=== PATIENT | female | born 1960 ===

== ENCOUNTER 2017-05-05 08:58 | Outpatient (CLI) | payer BC ==
--- NOTE | 2017-05-06 13:02 | Mammography Report ---
DIGITAL SCREENING MAMMOGRAM: 05/05/2017 CLINICAL INDICATION: A 57-year-old with history of late childbearing for screening. COMPARISON: 05/2014, 02/2013 TECHNIQUE: Routine CC and MLO projections were obtained of the breasts. FINDINGS: Scattered fibroglandular tissue is present within the breasts. There are no dominant dusty s, suspicious microcalcifications, or secondary signs of malignancy. In comparison to the previous st udies, there are no significant changes. ASSESSMENT: NO MAMMOGRAPHIC EVIDENCE OF MALIGNANCY. NO SIGNIFICANT INTERVAL CHANGES. RECOMMENDATION: Screening mammography is recommended annually. BIRADS category 1 - negative. STANDARD QUALIFYING STATEMENTS 1. This examination was reviewed with the aid of Computed-Aided Detection (CAD). 2. A negative or benign imaging report should not delay biopsy if clinically suspicious findings are present. Consider surgical consultation if warranted. More than 5% of cancers are not identified by i maging. 3. Dense breasts may obscure an underlying neoplasm. JOB #: [id number] EXT JOB #:[id number]
== END 2017-05-05 08:59 | disposition home or self-care (01) ==
LOC: DI.S 08:58
PROVIDERS: ATTEND Naturopath
DX: Z12.31 Encounter for screening mammogram for malignant neoplasm of breast (principal)
CPT/HCPCS: 77067

== ENCOUNTER 2017-07-11 07:02 | Day surgery (SDC) | payer BC ==
[2017-07-11] MEDS ORDERED: LACTATED RINGERS 1,000 ML IV ONE ×2 (07:10→08:35)
[2017-07-11] MEDS ORDERED: fentaNYL 100 MCG/2 ML VIAL IVP ONE (08:30)
[2017-07-11] MEDS ORDERED: MIDAZOLAM 2 MG/2 ML VIAL IVP ONE (08:30)
[2017-07-11 09:29] VITALS: BP 100/67
== END 2017-07-11 07:03 | disposition home or self-care (01) ==
LOC: SDS 07:02
PROVIDERS: ATTEND Surgery
PROC: 0DBL8ZX Excision of Transverse Colon, Via Natural or Artificial Opening Endoscopic, Diagnostic (ICD-10-PCS; principal; 2017-07-11 08:15)
DX: Z12.11 Encounter for screening for malignant neoplasm of colon (principal); D12.3 Benign neoplasm of transverse colon; K64.8 Other hemorrhoids
CPT/HCPCS: 45380; J7120

== ENCOUNTER 2021-02-21 08:00 | Outpatient (CLI) | payer BC | END 2021-02-21 23:59 | disposition home or self-care (01) | LOC: LAB.S 08:00 | PROVIDERS: ATTEND Physician Assistant | DX: J06.9 Acute upper respiratory infection, unspecified (principal); J34.89 Other specified disorders of nose and nasal sinuses; Z20.822 Contact with and (suspected) exposure to COVID-19 ==

== ENCOUNTER 2021-04-13 10:17 | Outpatient (CLI) | payer BC ==
[2021-04-13 14:54] LABS: BASOPHILS % (AUTO) 0.7 %; EOSINOPHILS # (AUTO) 0.2 10^3/uL (0.0-0.7); EOSINOPHILS % (AUTO) 2.6 %; HGB - HEMOGLOBIN 14.5 g/dL (12.0-16.0); LYMPHOCYTES # (AUTO) 1.6 10^3/uL (1.5-3.5); LYMPHOCYTES % (AUTO) 27.1 %; MEAN CORPUSCULAR HEMOGLOBIN 30.4 pg (27.0-31.0); MEAN CORPUSCULAR VOLUME 92.2 fL (81.0-99.0); MEAN PLATELET VOLUME 9.6 fL (7.9-10.8); MONOCYTES # (AUTO) 0.4 10^3/uL (0.0-1.0); MONOCYTES % (AUTO) 6.8 %; NEUTROPHILS # (AUTO) 3.8 10^3/uL (1.5-6.6); NEUTROPHILS % (AUTO) 62.5 %; PLT - PLATELET COUNT 376 10^3/uL (130-450); RED BLOOD COUNT 4.77 10^6/uL (4.20-5.40); RED CELL DISTRIBUTION WIDTH 12.9 % (12.0-15.0); WHITE BLOOD COUNT 6.1 x10^3/uL (4.8-10.8)
[2021-04-13 15:14] LABS: ALBUMIN 4.1 g/dL (3.2-5.5); ALBUMIN/GLOBULIN RATIO 1.2 (1.0-2.2); ALKALINE PHOSPHATASE 71 IU/L (42-121); ALT ALANINE AMINOTRANSFERASE 26 IU/L (10-60); AST ASPARTATE AMINOTRANSFERASE 21 IU/L (10-42); BILIRUBIN,TOTAL 0.8 mg/dL (0.2-1.0); BUN - BLOOD UREA NITROGEN 13 mg/dL (6-20); CALCIUM 9.2 mg/dL (8.5-10.3); CARBON DIOXIDE - CO2 27 mmol/L (21-32); CHLORIDE 105 mmol/L (101-111); CHOL/HDL RATIO 6.2 (<4.4); CHOLESTEROL 231 mg/dL; CREATININE 0.9 mg/dL (0.4-1.0); GFR - MDRD 64 (>89); GLUCOSE 103 mg/dL (70-100); HDL CHOLESTEROL 37 mg/dL; LDL CHOLESTEROL,CALCULATED 173 mg/dL; LDL/HDL RATIO 4.7 (<4.4); POTASSIUM 4.1 mmol/L (3.5-5.0); SODIUM 140 mmol/L (135-145); TOTAL PROTEIN 7.5 g/dL (6.7-8.2); TRIGLYCERIDES 103 mg/dL; VLDL CHOLESTEROL 21 mg/dL
[2021-04-13 20:25] LABS: ESTIMATED AVERAGE GLUCOSE 126 mg/dL (70-100)
== END 2021-04-13 10:18 | disposition home or self-care (01) ==
LOC: LAB.S 10:17
PROVIDERS: ATTEND Internal Medicine
DX: R03.0 Elevated blood-pressure reading, without diagnosis of hypertension (principal); Z13.220 Encounter for screening for lipoid disorders; R73.9 Hyperglycemia, unspecified
CPT/HCPCS: 36415; 80053; 80061; 83036; 83721; 85025

== ENCOUNTER 2023-03-22 08:22 | Outpatient (CLI) | payer BC ==
--- NOTE | 2023-03-22 10:18 | XRAY Report ---
PROCEDURE: Knee 2 View RT INDICATIONS: KNEE JOINT PAIN,RIGHT TECHNIQUE: 3 views of the right knee(s) were acquired. COMPARISON: None. FINDINGS: Bones: No fractures or dislocations. Mild to moderate medial femoral-tibial compartment osteoarthrit is is seen with joint space narrowing, subchondral sclerosis and small marginal osteophyte formation. No suspicious bony lesions. Soft tissues: No knee joint effusion. No suspicious soft tissue calcifications or masses. IMPRESSION: No acute bony abnormality. 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 Reviewed by: Pedro Schroeder MD on 03/22/2023 10:16 AM PDT Approved by: Pedro Schroeder MD on 03/22/2023 10:16 AM PDT Station ID: [id number]
[2023-03-22 14:54] LABS: BASOPHILS % (AUTO) 0.6 %; EOSINOPHILS # (AUTO) 0.2 10^3/uL (0.0-0.7); EOSINOPHILS % (AUTO) 2.5 %; HCT - HEMATOCRIT 44.8 % (37.0-47.0); HGB - HEMOGLOBIN 14.7 g/dL (12.0-16.0); LYMPHOCYTES # (AUTO) 1.6 10^3/uL (1.5-3.5); LYMPHOCYTES % (AUTO) 24.2 %; MEAN CORPUSCULAR HEMOGLOBIN 30.2 pg (27.0-31.0); MEAN CORPUSCULAR HGB CONC 32.8 g/dL (32.0-36.0); MEAN CORPUSCULAR VOLUME 92.2 fL (81.0-99.0); MONOCYTES # (AUTO) 0.5 10^3/uL (0.0-1.0); MONOCYTES % (AUTO) 7.3 %; NEUTROPHILS # (AUTO) 4.2 10^3/uL (1.5-6.6); NEUTROPHILS % (AUTO) 65.2 %; PLT - PLATELET COUNT 323 10^3/uL (130-450); RED BLOOD COUNT 4.86 10^6/uL (4.20-5.40); RED CELL DISTRIBUTION WIDTH 12.7 % (12.0-15.0); WHITE BLOOD COUNT 6.4 x10^3/uL (4.8-10.8)
[2023-03-22 15:35] LABS: ALBUMIN 4.2 g/dL (3.2-5.5); ALBUMIN/GLOBULIN RATIO 1.4 (1.0-2.2); ALKALINE PHOSPHATASE 77 IU/L (42-121); ALT ALANINE AMINOTRANSFERASE 22 IU/L (10-60); AST ASPARTATE AMINOTRANSFERASE 19 IU/L (10-42); BILIRUBIN,TOTAL 0.6 mg/dL (0.2-1.0); BUN - BLOOD UREA NITROGEN 15 mg/dL (6-20); CALCIUM 9.6 mg/dL (8.5-10.3); CARBON DIOXIDE - CO2 27 mmol/L (21-32); CHLORIDE 106 mmol/L (101-111); CHOLESTEROL 221 mg/dL; CREATININE 0.8 mg/dL (0.6-1.3); GFR - MDRD 73 (>89); GLUCOSE 111 mg/dL (74-104); HDL CHOLESTEROL 37 mg/dL; LDL CHOLESTEROL,CALCULATED 157 mg/dL; LDL/HDL RATIO 4.2 (<4.4); SODIUM 139 mmol/L (135-145); TOTAL PROTEIN 7.1 g/dL (6.4-8.9); TRIGLYCERIDES 135 mg/dL (48-352); VLDL CHOLESTEROL 27 mg/dL
[2023-03-22 15:46] LABS: THYROID STIMULATING HORMONE 2.28 uIU/mL (0.34-5.60)
== END 2023-03-22 08:23 | disposition home or self-care (01) ==
LOC: DI.S 08:22
PROVIDERS: ATTEND Nurse Practitioner Acute Care
DX: M17.11 Unilateral primary osteoarthritis, right knee (principal); Z13.228 Encounter for screening for other metabolic disorders; Z13.220 Encounter for screening for lipoid disorders; Z13.29 Encounter for screening for other suspected endocrine disorder; Z13.0 Encounter for screening for diseases of the blood and blood-forming organs and certain disorders involving the immune mechanism
CPT/HCPCS: 36415; 80053; 80061; 83721; 84443; 85025

== ENCOUNTER 2023-03-23 07:50 | Outpatient (CLI) | payer BC ==
--- NOTE | 2023-03-23 12:25 | Mammography Report ---
BILATERAL DIGITAL SCREENING MAMMOGRAM 3D/2D: 03/23/2023 CLINICAL: Routine screening. Comparison is made to exams dated: 05/05/2017 mammogram and 06/06/2014 mammogram - [facility]. There are scattered areas of fibroglandular density in both breasts (category b / 25%-50% glandular t issue). No significant masses, calcifications, or other findings are seen in either breast. There has been no significant interval change. IMPRESSION: NEGATIVE There is no mammographic evidence of malignancy. A 1 year screening mammogram is recommended. Based on the Tyrer Cuzick model (a risk assessment model) the patients lifetime risk is 9.0% and her 10 year risk is 3.6%. According to the ACR, ACS, and NCCN guidelines, an annual breast MRI exam lan g with mammogram is recommended if the patients lifetime risk is 20% or greater. This exam was interpreted at Station ID: [id number]. NOTE: For mammograms, a report in lay terms will be sent to the patient. Approximately 15% of breast malignancies will not be visualized mammographically. In the management of a palpable breast mass, a negative mammogram must not discourage biopsy of a clinically suspicious lesion. Electronically Signed By: Gregory pavon/[email or web address]:03/23/2023 10:14:12 letter sent: No_Letter ACR BI-RADS Category 1: Negative 3341F PARENCHYMAL PATTERN: (A) - The breast(s) demonstrate(s) scattered fibroglandular densities. BI-RADS CATEGORY: (1) - 1 Mammogram [id number] 1 year screening LATERALITY: (B)
== END 2023-03-23 07:51 | disposition home or self-care (01) ==
LOC: DI.S 07:50
DX: Z12.31 Encounter for screening mammogram for malignant neoplasm of breast (principal)

== ENCOUNTER 2024-02-15 08:00 | Outpatient (CLI) | payer BC, OTHER ==
--- NOTE | 2024-02-16 10:03 | XRAY Report ---
PROCEDURE: Shoulder 2+V LT INDICATIONS: PAIN IN LEFT SHOULDER TECHNIQUE: 3 views of the shoulder were acquired. COMPARISON: None. FINDINGS: Bones: No acute fractures or dislocations. No suspicious bony lesions. Visualized ribs appear inta ct. Mild to moderate acromioclavicular joint osteoarthrosis. Soft tissues: Faint calcifications are seen superior to the greater tuberosity suspicious for calcif ic tendinopathy.. The visualized lungs are within normal limits. IMPRESSION: 1.Suspected distal rotator cuff calcific tendinopathy. 2.Mild to moderate acromioclavicular joint osteoarthrosis. Reviewed by: Michael Parker MD on 02/16/2024 10:02 AM PDT Approved by: Michale Parker MD on 02/16/2024 10:02 AM PDT Station ID: [id number]
== END 2024-02-15 23:59 | disposition home or self-care (01) ==
LOC: DI.S 08:00
PROVIDERS: ATTEND Internal Medicine
DX: M19.012 Primary osteoarthritis, left shoulder (principal)